=== PATIENT | male | born 1950 | race Caucasian/White ===

== ENCOUNTER 2020-03-20 03:04 | Emergency (ER) | payer MEDICARE, BC ==
[2020-03-20] MEDS ORDERED: Ondansetron 4 MG Tab.DIS PO ONE (03:08)
--- NOTE | 2020-03-20 03:14 | EDM.PDOC ---
ED HPI GENERAL MEDICAL PROBLEM - General Chief Complaint: Head Injury Stated Complaint: FELL HIT HIS HEAD Time Seen by Provider: 03/20/20 03:09 Source of Information: Reports: Patient History Limitations: Reports: Other (no old records) - History of Present Illness INITIAL COMMENTS - FREE TEXT/NARRATIVE: 69 yo male fell tonight while intoxicated and hit his forehead area. He has bad knees and sometimes they give out on him. He does remember the fall. Did vomit on the way to the hospital. Denies PALACIOS. No extremity pain. Thinks his last tetanus was in the spring of this year. Onset: Today, Sudden Onset Date: 03/20/20 Duration: Minutes: Location: Reports: Head Quality: Reports: Other (denies pain) Severity: Mild Improves with: Reports: None Worsens with: Reports: None Context: Reports: Trauma Associated Symptoms: Reports: No Other Symptoms Treatments VERSE WRITER: Reports: Other (see below) (none) - Related Data Allergies Allergy/AdvReac Type Severity Reaction Status Date / Time ibuprofen Allergy Confusion Verified 03/20/20 03:15 Home Meds: Home Meds Aspirin 1 tab PO DAILY 03/20/20 [History] Cholecalciferol (Vitamin D3) [Vitamin D] 1 tab PO DAILY 03/20/20 [History] Clopidogrel [Plavix] 1 tab PO DAILY 03/20/20 [History] Folic Acid 1 mg PO DAILY 03/20/20 [History] Furosemide 1 tab PO DAILY 03/20/20 [History] Isosorbide Dinitrate 30 mg PO DAILY 03/20/20 [History] Losartan [Cozaar] 1 tab PO DAILY 03/20/20 [History] Metoprolol Tartrate 25 mg PO BID 03/20/20 [History] Multivitamin [Multi-Vitamin Daily] 1 tab PO DAILY 03/20/20 [History] atorvaSTATin [Lipitor] 40 mg PO BEDTIME 03/20/20 [History] glyBURIDE [Glyburide] 1 tab PO BID 03/20/20 [History] metFORMIN [Glucophage] 1 tab PO BID 03/20/20 [History] Social & Family History - Tobacco Use Smoking Status *Q: Never Smoker - Caffeine Use Caffeine Use: Reports: Coffee - Recreational Drug Use Recreational Drug Use: No ED ROS GENERAL - Review of Systems Review Of Systems: See Below Constitutional: Reports: No Symptoms HEENT: Reports: No Symptoms Respiratory: Reports: No Symptoms Cardiovascular: Reports: No Symptoms GI/Abdominal: Reports: Nausea, Vomiting Musculoskeletal: Reports: Other (Bad knees) Skin: Reports: Wound (minor forehead abrasion present) Neurological: Reports: Other (slurred speech from ETOH). Denies: Headache ED EXAM, HEAD INJURY - Physical Exam Exam: See Below Exam Limited By: No Limitations General Appearance: Alert, WD/WN, No Apparent Distress Head: Normocephalic, Facial Abrasions (forehead, minor). No: Scalp Ecchymosis, Active Bleeding, Vick's Sign, Facial Lacerations, Facial Swelling, Facial Tenderness, Raccoon Eyes Nexus Criteria: Evidence of Intoxication Eyes: Bilateral Eye: Conjunctival Injection, EOMI, PERRL Ears: Normal External Exam, Normal Canal, Hearing Grossly Normal, Normal TMs Nose: Normal Inspection, No Blood Throat/Mouth: Normal Inspection, Normal Lips, Normal Oropharynx, Normal Voice, No Airway Compromise Neck: Non-Tender Respiratory: No Respiratory Distress, Lungs Clear, Normal Breath Sounds, No Accessory Muscle Use Cardiovascular: Regular Rate, Rhythm, No Edema GI/Abdominal Exam: Normal Bowel Sounds, Soft, Non-Tender, No Distention Back Exam: Normal Inspection Extremities: Normal Inspection, Normal Range of Motion, Non-Tender, No Pedal Edema 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 As Tested, No Motor/Sensory Deficits, Alert, Normal Mood/Affect, Oriented x 3 Skin: Other (superficial forehead abrasion) - Carmita Coma Score Best Eye Response (Carmita): (4) Open Spontaneously Best Verbal Response (Carmita): (5) Oriented Best Motor Response (Harwood): (6) Obeys Commands Harwood Total: 15 Course - Vital Signs Last Recorded V/S: Last Vital Signs Temp 36.6 C 03/20/20 03:08 Pulse 68 03/20/20 04:10 Resp 19 03/20/20 04:10 BP 129/67 03/20/20 04:10 Pulse Ox 92 L 03/20/20 04:10 - Orders/Labs/Meds Meds: Medications Discontinued Medications Generic Name Dose Route Start Last Admin Trade Name Freq PRN Reason Stop Dose Admin Ondansetron HCl 4 mg 03/20/20 03:08 03/20/20 03:13 Zofran Odt PO 03/20/20 03:09 4 mg ONETIME ONE Administration - Radiology Interpretation Free Text/Narrative:: head CT scan-neg CT Results Date: 03/20/20 Departure - Departure Time of Disposition: 04:20 Disposition: Home, Self-Care 01 Condition: Good Clinical Impression: Forehead abrasion Qualifiers: Encounter type: initial encounter Qualified Code(s): S00.81XA - Abrasion of other part of head, initial encounter Alcohol intoxication Qualifiers: Complication of substance-induced condition: with unspecified complication Qualified Code(s): F10.929 - Alcohol use, unspecified with intoxication, unspecified - Discharge Information *PRESCRIPTION DRUG MONITORING PROGRAM REVIEWED*: Not Applicable *COPY OF PRESCRIPTION DRUG MONITORING REPORT IN PATIENT MARY: Not Applicable Referrals: PCP,None [Primary Care Provider] - Forms: ED Department Discharge Additional Instructions: Recheck as needed. Use caution to not fall again tonight while impaired. Sepsis Event Note (ED) - Focused Exam Vital Signs: Vital Signs Temp Pulse Resp BP Pulse Ox 03/20/20 04:10 68 19 129/67 92 L 03/20/20 03:30 63 19 133/64 97 03/20/20 03:08 36.6 C 68 13 131/52 L 98 03/20/20 03:06 36.4 C 66 15 131/52 L 98
--- NOTE | 2020-03-20 04:10 | CRLCT ---
INDICATION: Head injury. Patient on Plavix and aspirin. TECHNIQUE: CT head without contrast. COMPARISON: None. FINDINGS: CSF spaces: Within normal limits for age. Brain parenchyma: The srivastava-white differentiation is normal. No sign of mass, hemorrhage, or midline shift. Skull base and calvarium: Mild mucosal thickening paranasal sinuses. Atherosclerosis. The visualized orbits are grossly unremarkable. No skull fractures. IMPRESSION: Unremarkable noncontrast head CT. Please note that all CT scans at this facility use dose modulation, iterative reconstruction, and/or weight-based dosing when appropriate to reduce radiation dose to as low as reasonably achievable. Dictated by Marquis Brady MD @ Mar 20 2020 4:05AM Signed by Dr. Marquis Brady @ Mar 20 2020 4:09AM
[2020-03-20] MEDS ORDERED: Bacitracin Oint 1 GM U/D Packet TOP ONE (04:22)
== END 2020-03-20 04:40 | disposition home or self-care (01) ==
LOC: JP.ED 03:04
DX: S00.81XA Abrasion of other part of head, initial encounter (principal); F10.929 Alcohol use, unspecified with intoxication, unspecified; Z88.6 Allergy status to analgesic agent; Z79.82 Long term (current) use of aspirin; Z79.899 Other long term (current) drug therapy; Z79.84 Long term (current) use of oral hypoglycemic drugs; Z79.01 Long term (current) use of anticoagulants; W19.XXXA Unspecified fall, initial encounter; W22.8XXA Striking against or struck by other objects, initial encounter
CPT/HCPCS: 70450; 99283; A9270